=== PATIENT | male | born 1955 | race Caucasian/White ===

== ENCOUNTER 2024-03-21 05:02 | Day surgery (SDC) | payer MEDICARE, SELFPAY ==
--- NOTE | 2024-03-21 | COLBX_PTH ---
PATIENT: SAJAN REYES LOC: EN U#:[id number] AGE/SX: 68/M ROOM: RE03/21/[address]: Dr. Crescencio Alvarado DO : 1955 BED: DIS: 03/21/2024 SPEC #: [id number] RECD: 03/21/24 14:13 STATUS: EILEEN REMily #: [id number] SKYE: 03/21/24 00:[address]: Crescencio Alvarado DEPT: SURGICAL PATHOLOGY RECD BY: Finn Willis ENTERED: 03/21/24 14:14 SP TYPE: COLON BX OTHR DR: Dr. Owen Carrillo MD Tissues: A - Ascending colon B - COLON BIOPSY C - Descending colon D - Sigmoid colon biopsy E - Rectum, NOS Procedures: Surgery Specimen Level IV HEADER OPERATION: Colonoscopy with biopsy, cold snare, polypectomy PRE-OP DIAGNOSIS: Encounter for colorectal cancer screening using Cologuard test TISSUE SUBMITTED: A- Ascending colon polyp x2 biopsy, B- Splenic flexure polyp biopsy, C- Descending colon polyps x3 by cold snare, D- Sigmoid polyp, E- Rectum polyp MICROSCOPIC DIAGNOSIS A. Ascending colon polyp, biopsy: Tubular adenoma. B. Colonic polyp at hepatic flexure, biopsy: Focal hyperplastic change. C. Descending colon polyps, biopsy: Tubular adenoma. Fragments of hyperplastic polyp.D. Sigmoid colon polyp, biopsy: Hyperplastic polyp. E. Rectal polyp, biopsy: Hyperplastic polyp. [facility] 03/22/2024 MICROSCOPIC DESCRIPTION Slides are reviewed. GROSS DESCRIPTION A. Received in fixative is one container labeled with the patient's name and designated Ascending colon polyp. The specimen consists of two irregular fragments of light gamboa soft tissue that in aggregate measure 0.7 x 0.5 x 0.1 cm. The specimen is totally submitted in one cassette. B. Received in fixative is one container labeled with the patient's name and designated Splenic flexure polyp. The specimen consists of one irregular fragment of light gamboa soft tissue that measures 0.5 x 0.5 x 0.1 cm. The specimen is totally submitted in one cassette. C. Received in fixative is one container labeled with the patient's name and designated Descending colon polyp. The specimen consists of multiple irregular fragments of light gamboa soft tissue that in aggregate measure 2.5 x 1.5 x 0.2 cm. The specimen is totally submitted in one cassette. D. Received in fixative is one container labeled with the patient's name and designated Sigmoid polyp. The specimen consists of a polypoid fragment of gamboa tissue measuring 1.0 x 0.8 x 0.5cm. The specimen is bisected and totally submitted in one cassette. E. Received in fixative is one container labeled with the patient's name and designated Rectal polyp. The specimen consists of two irregular fragments of light gamboa soft tissue that in aggregate measure 0.7 x 0.6 x 0.1 cm. The specimen is totally submitted in one cassette. 03/21/2024 TC:5 CPT:80858l9
[2024-03-21 05:47] VITALS: BP 148/77; PULSE 76; RESP 18; TEMP 36.1; O2SAT 96; BMI 29.2
[2024-03-21] MEDS: Lactated Ringers 1,000 ML 15 ML IV (05:52)
--- NOTE | 2024-03-21 06:30 | PCM.PRE.AN2 ---
ASA Classification* ASA Classification ASA Classification: 2 Assessment & Plan Anesthesia* Anesthesia Assessment Anesthesia Assessment: Discussed sedation and/or anesthesia options, risks, benefits, and alternatives with patient/parents/legal guardian/POA. Questions invited. The patient/parents/legal guardian/POA seems to understand and agrees to proceed with anesthesia plan. Reviewed the physical assessment, medical history, allergy history and patient home medications list prior to surgery/procedure/anesthetic and documented any changes. Performed airway and anesthesia risk assessments. Anesthesia Type Anesthesia Type: MAC History Source History Obtained from:: Patient and Chart Anesthesia Focused Assessment* Temperature: 97.0 F Pulse Rate: 76 Blood Pressure: 148/77 Respiratory Rate: 18 Pulse Ox: 96 Airway Assessment Mouth opens: >3 cm Mallampati Score: II Teeth Condition: Dentures Neck Range of motion (ROM): Full ROM Focused Labs Anesthesia Preop lab: CBC CHEMISTRY COAG Pre-Assessment Diagnosis/Proposed Procedure Planned Operative Procedure(s): CSCOPE Anesthesia History Anesthesia History - pharmacy services representative: Anesthesia History - pharmacy services representative Hx Hospitalization No 03/20/24 09:17 Any Problems With Anesthesia No 03/20/24 09:17 Cholinesterase deficiency No 03/20/24 09:17 You/Your Family Experience No 03/20/24 09:17 fever (hyperthermia) with Relationship Recent Exposure to Contagious No 03/21/24 05:46 Disease Does patient have nerve No 03/20/24 09:17 stimulator Patient instructed to have device shut off --Does patient have Pacemaker No 03/21/24 05:47 or ICD? When Was Last Pacemaker Check QUESTION #4 FULL TEXT: You/Your Family Experience fever (hyperthermia) with Anesthesia Last Oral Intake Last Oral intake: Last Oral Intake NPO since 02:00 03/21/24 05:47 Meds taken in AM with sips of Yes 03/21/24 05:47 water? Meds patient instructed to take am of surgery PONV PONV - pharmacy services representative: PONV - pharmacy services representative Female No 03/20/24 09:17 HX of Motion Sickness No 03/20/24 09:17 HX of N/V After Surgery No 03/20/24 09:17 Non-Smoker No 03/20/24 09:17 Duration of Surgery greater No 03/20/24 09:17 than 60 minutes Number of Risk Factors PONV Score Height & Weight Height & Weight: Anesthesia: Height & Weight Height 5 ft 10 in 03/21/24 05:47 Weight: 92.624 kg 03/21/24 05:47 Body Mass Index (BMI) 29.2 03/21/24 05:47 Respiratory Assessment Respiratory Assessment - pharmacy services representative: Respiratory Tract Infection Hx - pharmacy services representative Hx Respiratory Tract Infection No 03/20/24 09:17 STOP Sleep Apnea STOP Sleep Apnea - pharmacy services representative: STOP Sleep Apnea - pharmacy services representative Hx Hypertension No 03/20/24 09:17 Hx Sleep Apnea No 03/20/24 09:17 CPAP BIPAP Do you snore loudly (louder Yes 03/20/24 09:17 than talking or can be heard Do you often feel tired/ No 03/20/24 09:17 fatigued/ sleepy during daytime? Has anyone observed you stop No 03/20/24 09:17 breathing during sleep? STOP Results Negative 03/20/24 09:17 QUESTION #5 FULL TEXT : Do you snore loudly (louder than talking or can be heard through closed doors)? Tobacco Use History Tobacco Use History - pharmacy services representative: Tobacco Use History - pharmacy services representative Tobacco Use Smoking Status Current every day smoker 03/20/24 09:17 Hx Tobacco Use Yes 03/20/24 09:17 Years Smoking Packs Smoked per Day Smoking Cessation Date was within the last 15 years Hx Smoking Cessation Date Hx Smoking Cessation Counseling Hematologic Medial History Hematologic Hx - pharmacy services representative: Hematologic Medical Hx - technology integration specialist Hx of Blood Transfusion No 03/20/24 09:17 Hx of Transfusion in last 3 No 03/20/24 09:17 Months Date of Last Transfusion (if within last 3 months) Ever experience any problems No 03/20/24 09:17 with transfusion(s)? Specify any problems Hx of Preganancy in last 3 N/A 03/20/24 09:17 Months Nurse Filling Out Transfusion DSCHRIBER 03/20/24 09:17 & Questions: Date: 03/20/24 03/20/24 09:17 Time: 09:18 03/20/24 09:17 Patient unable to answer at this time (ie. confused, unrespo /Reproduction History /Reproductive History - pharmacy services representative: /Reproductive Hx- pharmacy services representative Hx Now No 03/20/24 09:17 Gestational Age (in weeks): EDC: Hx Hx Para Hx Section SAB No 03/20/24 09:17 Active Medications Active Medications: Current Medications Generic Name Dose Route Start Last Admin Trade Name Freq PRN Reason Stop Dose Admin Lactated Ringer's 1,000 mls @ 15 mls/hr 03/21/24 05:45 03/21/24 05:52 IV 15 mls/hr .Q48H DALIA Administration PFSH Medical History Wears partial dentures Wears dentures Alcohol use Arthritis Injury of head and neck Smoker Leg cramps Positive colorectal cancer screening using Cologuard test Hyperlipidemia Type 2 diabetes mellitus Home Medications ?Medication ?Instructions ?Recorded ?Last Taken ?Type atorvastatin 20 mg tablet 20 mg PO QHS 02/23/24 03/19/24 History metformin 500 mg tablet 500 mg PO BID 02/23/24 03/19/24 History epinephrine 0.3 mg/0.3 mL 0.3 ml IM Q15M PRN anaphylaxis 03/20/24 Unknown History injection, auto-injector Allergy/AdvReac Type Severity Reaction Status Date / Time bee venom protein (honey Allergy Severe Anaphylaxis Verified 03/21/24 05:44 bee) (bee sting) Family History Mother CAD (coronary artery disease) Diabetes Sister CAD (coronary artery disease) Diabetes Father Hypertension Brother Cancer Surgical History Hx of oral surgery History of excision of lesion Social History Smoking Status: Current every day smoker tobacco type: cigarettes alcohol intake: current alcohol intake frequency: holidays/special occasions only Review of Systems (Anesthesia) ROS Narrative System reviewed and no additional complaints, except as documented.
[2024-03-21 06:38] VITALS: BP 148/77; PULSE 76; RESP 18; TEMP 36.1; O2SAT 96
--- NOTE | 2024-03-21 06:41 | PCM.HP.BLA ---
History and Physical Date of Admission: 03/21/24 ED ERIC is a 68 M who presents to the office today for establishment with [facility] for a positive home colorectal screening tool, Cologuard. He reports high cholesterol being managed by atorvastatin, takes a multivitamin, and metformin to manage type 2 diabetes. He denies family history of colorectal cancer and polyps. He denies easy bruising or bleeding. States allergy to bee venom with anaphylactic reactions that necessitate carrying an epi-pen. Denies any other complaints or concerns. ROS Const Constitutional: No anorexia, body ache, chills, excessive sweating, fatigue, fever(s), frequent falls, headache(s), decreased energy, malaise, night sweats, snoring, weakness, weight change, sleep problems, abnormal sleep pattern, change in appetite or other Eyes Eyes: No change in vision ENT ENT: No abnormal hearing, headache(s) or difficulty swallowing Resp Respiratory: No cough or snoring Cardio Cardiology: No excessive sweating Gastro GI: No abdominal pain, belching, bloating, change in bowel habits, change in stool character, coffee ground emesis, constipation, cramping, diarrhea, heartburn, difficulty swallowing, feeling full early, excessive flatus, incontinent of stools, Vomiting blood/hematemesis, Blood in stool, loose stools, Black,tarry stools, nausea/dyspepsia, pain with swallowing, vomiting or other Genitourinary Male: No difficulty urinating Musc Musculoskeletal: No abnormal gait or joint pain Skin Skin: No yellowing of the eye or itchy eyes Neuro Neurology: No abnormal gait, abnormal hearing, weakness, frequent falls or headache(s) Psych Psychiatric: No abnormal sleep pattern, No anxiety, No change in appetite and No depression Endo Endocrine: No change in body appearance, cold intolerance, excessive sweating, fatigue, heat intolerance or weight change Aller/Imm Allergy/Immunologic: No food intolerance or itchy eyes Edin/Lymp Hematologic/Lymphatic: No easy bleeding or easy bruising Exam Const General: cooperative, healthy appearing, comfortable and no acute distress Nutritional Appearance: average body habitus Orientation: alert, awake and oriented x3 HENMT Head: normal to inspection Ears: hearing grossly normal bilaterally Nose: external nose normal Face and sinus: normal facial exam and face symmetric Eyes General: appearance normal, both eyes and all related structures Neck Neck: normal visual inspection and full ROM Neck mass: No Chest Chest palpation & inspection: normal inspection of the chest Resp Effort & Inspection: normal respiratory effort, able to speak in complete sentences and symmetric chest movement GI Inspection: normal to inspection Skin General: no rashes or lesions noted Neuro General: patient alert, patient awake and patient oriented x3 Cognition: normal cognition Speech: speech normal Gait: normal gait Extrem General: normal to inspection and full ROM Psych Appearance: grossly normal and well kempt Mental Status: mental status grossly normal Mood: congruent mood Affect: normal affect Speech and Movement: speech and movement normal Attitude: cooperative Thought Process: normal Judgment: judgment good Assessment and Plan Assessment and Plan (1) Encounter for colorectal cancer screening using Cologuard test: Status: Acute Plan: MAE REYES, is a 68 M who presents to the office today for establishment with [facility] for a positive home colorectal screening tool, Cologuard. Denies family history of polyps or colorectal cancer. Denies having other complaints or concerns at this time. schedule colonoscopy call patient with results patient to call office with future concerns Coding Level of Care Code New Pt Off vis,new,level 3 Patient Type New History Detailed Exam Problem Focused Medical Decision Making Low Complexity Diagnoses Encounter for colorectal cancer screening using Cologuard test Z12.11; Z12.12 I have examined the patient and the H&P has been reviewed. There are no clinical changes since date of exam.
[2024-03-21 07:15] VITALS: BP 144/115; BP 148/77; PULSE 60; RESP 16; TEMP 36.4; O2SAT 96
[2024-03-21 07:20] VITALS: BP 148/77; BP 99/65; PULSE 60; PULSE 63; RESP 16; TEMP 36.4; O2SAT 95; O2SAT 98
--- NOTE | 2024-03-21 07:20 | OP.COLON_ITS ---
Patient Name: Billy Rockwell Procedure Date: 03/21/2024 6:13 AM Date of : 1955 Age: 68 Procedure: Colonoscopy Indications: Screening for colorectal malignant neoplasm Providers: DO Afia Caballero MD: Owen Carrillo Medicines: Monitored Anesthesia Care Patient Profile: This is a 68 year old male. Refer to note in patient chart for documentation of history and physical. Last Colonoscopy: none. The patient's first colonoscopy is today. Complications: No immediate complications. Procedure: Pre-Anesthesia Assessment: - Prior to the procedure, a History and Physical was performed, and patient medications and allergies were reviewed. The patient is competent. The risks and benefits of the procedure and the sedation options and risks were discussed with the patient. All questions were answered and informed consent was obtained. Patient identification and proposed procedure were verified by the physician in the pre-procedure area. Mental Status Examination: alert and oriented. Airway Examination: normal oropharyngeal airway and neck mobility. Respiratory Examination: clear to auscultation. CV Examination: normal. Prophylactic Antibiotics: The patient does not require prophylactic antibiotics. Prior Anticoagulants: The patient has taken no anticoagulant or antiplatelet agents except for NSAID medication. ASA Grade Assessment: II - A patient with mild systemic disease. After reviewing the risks and benefits, the patient was deemed in satisfactory condition to undergo the procedure. The anesthesia plan was to use monitored anesthesia care (MAC). Immediately prior to administration of medications, the patient was re-assessed for adequacy to receive sedatives. The heart rate, respiratory rate, oxygen saturations, blood pressure, adequacy of pulmonary ventilation, and response to care were monitored throughout the procedure. The physical status of the patient was re-assessed after the procedure. After I obtained informed consent, the scope was passed under direct vision. Throughout the procedure, the patient's blood pressure, pulse, and oxygen saturations were monitored continuously. The Colonoscope was introduced through the anus and advanced to the cecum, identified by the appendiceal orifice, IC valve and transillumination. The colonoscopy was performed without difficulty. The patient tolerated the procedure well. The quality of the bowel preparation was adequate. The ileocecal valve, appendiceal orifice, and rectum were photographed. Scope In: 6:46:17 AM Scope Withdrawal Time 0 hours 22 minutes 9 seconds Scope Out: 7:12:17 AM Total Procedure Duration Time 0 hours 26 minutes 0 seconds Findings: The perianal and digital rectal examinations were normal. Many small and large-mouthed diverticula were found in the recto-sigmoid colon, sigmoid colon and descending colon. Two sessile polyps were found in the ascending colon. The polyps were 1 to 2 mm in size. These polyps were removed with a jumbo cold forceps. Resection and retrieval were complete. Verification of patient identification for the specimen was done. Estimated blood loss was minimal. Three sessile polyps were found in the descending colon. The polyps were 1 to 2 mm in size. These polyps were removed with a cold snare. Resection and retrieval were complete. Verification of patient identification for the specimen was done. Estimated blood loss was minimal. Two sessile polyps were found in the rectum and sigmoid colon. The polyps were 1 to 2 mm in size. These polyps were removed with a hot snare. Resection and retrieval were complete. Verification of patient identification for the specimen was done. Estimated blood loss was minimal. Impression: - Diverticulosis in the recto-sigmoid colon, in the sigmoid colon and in the descending colon. - Two 1 to 2 mm polyps in the ascending colon, removed with a jumbo cold forceps. Resected and retrieved. - Three 1 to 2 mm polyps in the descending colon, removed with a cold snare. Resected and retrieved. - Two 1 to 2 mm polyps in the rectum and in the sigmoid colon, removed with a hot snare. Resected and retrieved. Recommendation: - Repeat colonoscopy in 3 years for surveillance. - Continue present medications. Procedure Code(s): --- Professional --- 84630, Colonoscopy, flexible; with removal of tumor(s), polyp(s), or other lesion(s) by snare technique 03188, 59, Colonoscopy, flexible; with biopsy, single or multiple CPT copyright 2021 [employer]. All rights reserved. The codes documented in this report are preliminary and upon power generation equipment repairer review may be revised to meet current compliance requirements. Crescencio Alvarado DO 03/21/2024 7:19:20 AM This report has been signed electronically. Number of Addenda: 0 Note Initiated On: 03/21/2024 6:13 AM
--- NOTE | 2024-03-21 07:20 | OP.CCLET_ITS ---
03/21/2024 Owen Carrillo Re : Colonoscopy procedure for Billy Otto Gerardo This procedure was performed on Thursday, March 21, 2024. My impressions and recommendations are as follows: Impressions : - Diverticulosis in the recto-sigmoid colon, in the sigmoid colon and in the descending colon. - Two 1 to 2 mm polyps in the ascending colon, removed with a jumbo cold forceps. Resected and retrieved. - Three 1 to 2 mm polyps in the descending colon, removed with a cold snare. Resected and retrieved. - Two 1 to 2 mm polyps in the rectum and in the sigmoid colon, removed with a hot snare. Resected and retrieved. Recommendations : - Repeat colonoscopy in 3 years for surveillance. - Continue present medications. My findings are described in the full procedure note, which is enclosed. If I can be of further assistance, please feel free to contact me at . Sincerely, Crescencio Alvarado, 03/21/2024 7:19:20 AM This report has been signed electronically.
--- NOTE | 2024-03-21 07:20 | PCM.POST.ANE ---
Anesthesia: Postop Eval I Current Vital Signs Temperature: 97.6 F Pulse Rate: 60 Blood Pressure: 148/77 Respiratory Rate: 16 Pulse Ox: 98 Oxygen Delivery Method: Room Air Assessment Airway patent: Yes Spontaneous unlabored respirations: Yes Mental status: Asleep nausea: No Vomiting: No Anesthesia Complication: No Fluid Hydration Crystalloid volume administer (ml): 700 Total IV fluid infused: 700 Progress Note Anesthesia document: Postop Eval 1 completed: Yes
[2024-03-21 07:25] VITALS: BP 106/66; BP 148/77; PULSE 68; RESP 16; TEMP 37; O2SAT 96
[2024-03-21 07:29] LABS: Bedside Glucose 224 mg/dL (74-106)
--- NOTE | 2024-03-21 07:33 | PCM.POSTANE2 ---
Anesthesia Postop Eval I Sum Postop Eval Completion status Anesthesia document: Postop Eval 1 completed: Yes Anesthesia Postop Eval I Summary Anesthesia Postop Eval I Summary: Anesthesia Postop Eval I: Assessment Summary Airway patent Yes 03/21/24 07:20 [email or web address] Spontaneous unlabored Yes 03/21/24 07:20 [email or web address] respirations Mental status Asleep 03/21/24 07:20 [email or web address] nausea No 03/21/24 07:20 [email or web address] Vomiting No 03/21/24 07:20 [email or web address] Anesthesia Postop Eval I: Fluid Summary Crystalloid volume administer 700 03/21/24 07:20 [email or web address] (ml) Colloids volume administered ( ml) Blood Product volume administered (ml) Total IV fluid infused 700 03/21/24 07:20 [email or web address] Anesthesia Postop Eval I: Summary Notes Anesthesia Complication No 03/21/24 07:20 [email or web address] Anesthesia Complication Comment: Post-operative progress note Anesthesia: Postop Eval II Evaluation Mental status: Awake Pain Level: 0 nausea: No Vomiting: No
[2024-03-21 07:39] VITALS: BP 148/77
== END 2024-03-21 07:55 | disposition home or self-care (01) ==
LOC: EN 05:04 → AC 05:14
PROVIDERS: PCP Family Medicine; Referring Provider Family Medicine; Visit Provider Internal Medicine Gastroenterology
PROC: 0DJD8ZZ Inspection of Lower Intestinal Tract, Via Natural or Artificial Opening Endoscopic (ICD-10-PCS; CPT 45378; principal; 2024-03-21 06:25)
DX: Z12.11 Encounter for screening for malignant neoplasm of colon (principal); E11.9 Type 2 diabetes mellitus without complications; K57.30 Diverticulosis of large intestine without perforation or abscess without bleeding; D12.2 Benign neoplasm of ascending colon; D12.4 Benign neoplasm of descending colon; K62.1 Rectal polyp; F17.200 Nicotine dependence, unspecified, uncomplicated; E78.5 Hyperlipidemia, unspecified; Z79.899 Other long term (current) drug therapy; Z79.84 Long term (current) use of oral hypoglycemic drugs
CPT/HCPCS: 45385; 45380; 82962; 88305; J7120; J2405